=== PATIENT | female | born 2000 | race Two or more races ===

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

== ENCOUNTER 2022-08-08 10:25 | Emergency (ER) | payer BC, OTHER, SELFPAY ==
[2022-08-08 12:21] VITALS: BP 120/78; PULSE 80; RESP 18; TEMP 36.8; O2SAT 100
--- NOTE | 2022-08-08 13:01 | ED.URI ---
HPI - URI/Sore Throat General Chief Complaint: Upper Respiratory Infection Stated Complaint: congestion,sorethroat Source: patient and family Mode of arrival: ambulatory History of Present Illness HPI Narrative: This is a 21-year-old female that has been experiencing chills low-grade fevers she notes that her temperature was 99?, body aches, cough congestion and runny nose. Patient took [id number] cold and cough medication for symptoms. The patient denies SOB, CP, palpitation, extremity numbness, lightheadedness, dizziness, constipation, and diarrhea. Related Data Home Medications Medication Instructions Recorded Confirmed spironolactone 100 mg tablet 100 mg PO DAILY 06/29/21 08/08/22 albuterol 90 mcg/actuation aerosol 90 mcg inhalation PRN PRN 09/18/21 08/08/22 inhaler Shortness Of Breath Or Wheezing budesonide-formoterol HFA 80 1 puff inhalation TID 09/18/21 08/08/22 mcg-4.5 mcg/actuation aerosol inhaler multivitamin 1 tablet PO DAILY 09/18/21 08/08/22 Allergies Allergy/AdvReac Type Severity Reaction Status Date / Time No Known Allergies Allergy Mild Verified 08/08/22 12:15 Review of Systems Review of Systems: A 14 organ system Review of Systems was performed and pertinent positives included in the HPI, otherwise remaining ROS is negative. [facility] Past Medical History Medical History Asthma Activity induced BMI 26.0-26.9,adult BMI 27.0-27.9,adult Surgical History Surgical History No significant past surgical history Family History Family History Mother Patient's mother is in good health Family history of kidney disease Autoimmune disorder Father Patient's father is in good health Sibling Patient's brother is in good health Social History Social History Smoking status: Never smoker Second hand tobacco smoke exposure: No Alcohol intake: current Drinks per week: 1 Alcohol use details: Social drinker Substance use: never Substance use type: marijuana Additional occupation/education comments: [employer] Gender identity (if verbalized by the patient): Female Sexual Orientation (if Verbalized by the Patient): Straight or Heterosexual Spiritual care concerns: No Agree to blood products: Yes Exam Narrative: GENERAL: Ill appearance, in no apparent distress. HEAD: normocephalic, atraumatic. EYES: PERRL. Sclera clear/white. Vision is grossly intact. EARS: External ears normal, auditory canals clear and without drainage, TMs normal without perforation. Hearing grossly intact. NOSE: External nose normal with no obvious nasal discharge, nares without redness, no rhinorrhea. THROAT: Mucous membranes moist, posterior pharynx clear. NECK: Neck supple, non-tender without lymphadenopathy, masses or thyromegaly. CARDIOVASCULAR: Regular rate and rhythm without murmurs, gallops, or rubs. RESPIRATORY: Clear to auscultation. Breath sounds equal bilaterally. No wheezes, rales, or rhonchi. GASTROINTESTINAL: Abdomen soft, non-tender, nondistended. Bowel sounds are active. No hepato-splenomegaly, or palpable masses. No guarding. SKIN: warm, intact with no suspicious lesions or rash, good texture and turgor. NEURO: awake, alert, and oriented to person, place and time. There were no obvious focal neurologic abnormalities. EXTREMITIES: Normal range of motion. No edema. No calf tenderness. Course Course Emergency Course: Patient tested positive for influenza A she will be treated with Tamiflu, guaifenesin and Tessalon Perles Level of Care: Express Care Visit Vital Signs Vital signs: Vital Signs Temperature 98.3 F 08/08/22 12:21 Pulse Rate 80 08/08/22 12:21 Respiratory Rate 18 08/08/22 12:21 Blood Pressure 120/78 08/08/22 1
== END 2022-08-08 13:10 | disposition home or self-care (01) ==
PROVIDERS: Emergency Provider Nurse Practitioner; PCP Family Medicine
DX: J10.1 Influenza due to other identified influenza virus with other respiratory manifestations (principal); J45.990 Exercise induced bronchospasm
CPT/HCPCS: 87804; 99213; G0463

== ENCOUNTER 2022-11-15 10:41 | Emergency (ER) | payer BC, OTHER, SELFPAY ==
[2022-11-15 11:20] VITALS: BP 109/62; PULSE 73; RESP 16; TEMP 36.7; O2SAT 100
--- NOTE | 2022-11-15 11:42 | ED.GENADULT ---
HPI - General Adult General Chief complaint: Upper Respiratory Infection Stated complaint: sorethroat,congestion Time Seen by Provider: 11/15/22 11:42 Source: patient Mode of arrival: ambulatory Limitations: no limitations History of Present Illness HPI narrative: 22-year-old female patient presents to the [facility] with complaints of sore throat that started yesterday. Patient denies any fevers, body aches or chills. Denies any ear pain, sneezing or coughing. Denies chest pain, shortness of breath. Patient states she took NyQuil last night for her symptoms. Related Data Home Medications Medication Instructions Recorded Confirmed spironolactone 100 mg tablet 100 mg PO DAILY 06/29/21 11/15/22 albuterol 90 mcg/actuation aerosol 90 mcg inhalation PRN PRN 09/18/21 11/15/22 inhaler Shortness Of Breath Or Wheezing Allergies Allergy/AdvReac Type Severity Reaction Status Date / Time No Known Allergies Allergy Mild Verified 11/15/22 11:24 Review of Systems Review of Systems: CONSTITUTIONAL: Denies fever, chills, or sweats. EYES: Denies visual changes, redness, or discharge. ENT: Denies rhinorrhea, congestion, Positive sore throat, or otalgia. CARDIOVASCULAR: Denies chest pain, palpitations, or edema. RESPIRATORY: Denies cough or dyspnea. GASTROINTESTINAL: Denies abdominal pain, nausea, vomiting, or diarrhea. GENITOURINARY: Denies dysuria or hematuria. SKIN: Denies rash or itching. MUSCULOSKELETAL: Denies back pain, joint pain, or myalgia. NEUROLOGIC: Denies headache, numbness, or weakness. PSYCHIATRIC: Denies anxiety or depression. [facility] Past Medical History Medical History Asthma Activity induced BMI 26.0-26.9,adult BMI 27.0-27.9,adult Surgical History Surgical History No significant past surgical history Family History Family History Mother Patient's mother is in good health Family history of kidney disease Autoimmune disorder Father Patient's father is in good health Sibling Patient's brother is in good health Social History Social History Smoking status: Never smoker Second hand tobacco smoke exposure: No Alcohol intake: current Drinks per week: 1 Alcohol use details: Social drinker Substance use: never Substance use type: marijuana Living arrangements: with family Occupation/Education: student Additional occupation/education comments: [employer] Gender identity (if verbalized by the patient): Female Sexual Orientation (if Verbalized by the Patient): Straight or Heterosexual Spiritual care concerns: No Agree to blood products: Yes Comments At the time of my signature I agree with nursing past medical history, surgical, social, and family history. There is no relevant family history pertinent to the presenting complaint. Exam Narrative: GENERAL: Well-appearing, well-nourished, and in no acute distress. HEAD: Normocephalic, atraumatic. EYES: PERRLA and EOMI. ENT: Nares clear, no rhinorrhea or epistaxis. Mucous membranes moist. bilateral TMs are clear no erythema foreign bodies in the canal. Posterior pharynx with no erythema, tonsillar enlargement, exudates or lesions present. NECK: Supple. No lymphadenopathy CHEST: Clear to auscultation. No respiratory distress. HEART: Regular rate and rhythm. No murmur heard. Normal peripheral pulses. ABDOMEN: Soft, nontender, nondistended, normal active bowel sounds. EXTREMITIES: Normal range of motion. No edema. SKIN: Warm, dry, no rash. NEURO: No focal deficits. Alert and oriented x3. Course Course Level of Care: Express Care Visit Vital Signs Vital signs: Vital Signs Temperature 36.7 C 11/15/22 11:20 Pulse Rate 73 11/15/22 11:20 Respiratory Rate 16 11/15/22 11:20 Blo
== END 2022-11-15 11:57 | disposition home or self-care (01) ==
PROVIDERS: Emergency Provider Nurse Practitioner Family; PCP Family Medicine
DX: J02.9 Acute pharyngitis, unspecified (principal); J45.909 Unspecified asthma, uncomplicated
CPT/HCPCS: 87081; 87880; 99213; G0463

== ENCOUNTER 2023-04-15 14:51 | Outpatient (CLI) | payer OTHER, SELFPAY ==
--- NOTE | ~2023-04-15 | XR_ITS ---
EXAM: XR hand RT min 3V DATE: 04/15/2023 15:04 HISTORY: S69.90XA - Unspecified injury of unspecified wrist, hand ... . COMPARISON: None available. FINDINGS: Normal mineralization. Small osseous fragment at the proximal and anterior aspect of the f ifth middle phalange that appears to be fused with the phalange. No acute fracture or dislocation. No lytic or blastic lesion. Joint spaces are maintained. No erosion or periosteal change. Soft tissues within normal limits. IMPRESSION: Likely healed volar plate avulsion at the proximal aspect of the right fifth middle phala nge. Reviewed, dictated and finalized at location K. IMPRESSION: Likely healed volar plate avulsion at the proximal aspect of the ri ght fifth middle phalange.
== END 2023-04-15 14:52 ==
PROVIDERS: PCP Family Medicine; Visit Provider Physician Assistant Medical
DX: S69.90XA Unspecified injury of unspecified wrist, hand and finger(s), initial encounter (principal); X58.XXXA Exposure to other specified factors, initial encounter
CPT/HCPCS: 73130

== ENCOUNTER 2023-04-15 15:29 | Emergency (ER) | payer SELFPAY ==
--- NOTE | 2023-04-15 15:31 | P.SPORTS_ITS ---
[facility] Past Medical History Medical History Asthma Activity induced BMI 26.0-26.9,adult BMI 27.0-27.9,adult Surgical History Surgical History No significant past surgical history Family History Family History Mother Patient's mother is in good health Family history of kidney disease Autoimmune disorder Father Patient's father is in good health Sibling Patient's brother is in good health Social History Social History Smoking status: Never smoker Second hand tobacco smoke exposure: No Alcohol intake: current Drinks per week: 1 Alcohol use details: Social drinker Substance use: never Substance use type: marijuana Living arrangements: with family Occupation/Education: student Additional occupation/education comments: [employer] Gender identity (if verbalized by the patient): Female Sexual Orientation (if Verbalized by the Patient): Straight or Heterosexual Spiritual care concerns: No Agree to blood products: Yes Allergies: Allergies Allergy/AdvReac Type Severity Reaction Status Date / Time No Known Allergies Allergy Mild Verified 04/15/23 13:20 Home Medications: Home Medications Medication Instructions Recorded Confirmed spironolactone 100 mg tablet 100 mg PO DAILY 06/29/21 04/15/23 albuterol 90 mcg/actuation aerosol 90 mcg inhalation PRN PRN 09/18/21 04/15/23 inhaler Shortness Of Breath Or Wheezing Services Provided Sports Physical Completed: Urvashi Cisneros was seen today, 04/15/23, for a sports physical. The paper physical form was completed and scanned into the chart. The original paper physical form was given to the patient for submission to their school. Discharge Plan Discharge Clinical Impression: Encounter for examination for participation in sport Patient Disposition: Home, Self-Care Condition: Stable Instructions: Antibiotic Form, Normal Exam (ED) Additional Instructions: May participate in sports for the [id number] school season. Prescriptions: No Action spironolactone 100 mg tablet 100 mg PO DAILY albuterol 90 mcg/actuation aerosol 90 mcg inhalation PRN PRN (Reason: Shortness Of Breath Or Wheezing) Follow-up/Referrals: Jeremie Strong MD [Primary Care Provider] - Time of Disposition: 15:34
[2023-04-15 15:39] VITALS: BP 101/62; PULSE 76; RESP 16; TEMP 36.6; O2SAT 100
== END 2023-04-15 15:49 | disposition home or self-care (01) ==
PROVIDERS: Emergency Provider Nurse Practitioner Family; PCP Family Medicine
DX: Z02.5 Encounter for examination for participation in sport (principal)
CPT/HCPCS: 99199

== ENCOUNTER 2025-01-31 08:55 | Emergency (ER) | payer OTHER, SELFPAY ==
[2025-01-31 09:05] VITALS: BP 104/74; PULSE 60; RESP 18; TEMP 37.3; O2SAT 98
--- NOTE | 2025-01-31 09:44 | ED.FEMALEGU ---
HPI - Female Genitourinary General Chief complaint: Urogenital-Female Stated complaint: Uti Symptoms Time Seen by Provider: 01/31/25 09:40 Source: patient and RN notes reviewed Mode of arrival: ambulatory Limitations: no limitations History of Present Illness HPI Narrative: 24-year-old female presents with concern for 1 day history of frequency and dysuria. Reports frequent urinary tract infections. She denies fever, body aches, chills, sweats, nausea, vomiting MD elicited complaint: UTI Related Data Home Medications Medication Instructions Recorded Confirmed Last Taken Type spironolactone 100 mg tablet 100 mg PO DAILY 06/29/21 08/05/23 Unknown History albuterol 90 mcg/actuation aerosol 90 mcg inhalation PRN PRN 09/18/21 08/05/23 Unknown History inhaler Shortness Of Breath Or Wheezing tretinoin 0.05 % topical cream applic topical 08/05/23 08/05/23 Unknown History Allergies Allergy/AdvReac Type Severity Reaction Status Date / Time No Known Allergies Allergy Mild Verified 09/10/23 15:14 Review of Systems Review of Systems: CONSTITUTIONAL: Denies malaise, chills, sweats, or fever. CARDIOVASCULAR: Denies chest pain, palpitations, or edema. RESPIRATORY: Denies cough or dyspnea. GASTROINTESTINAL: Denies abdominal pain, nausea, vomiting, diarrhea GENITOURINARY: Reports dysuria, frequency, urgency. Denies flank pain or hematuria. SKIN: Denies rash or itching. MUSCULOSKELETAL: Denies back pain or myalgia. All systems reviewed & are unremarkable except as noted in HPI and below PMFSH Past Medical History Medical History (Updated 01/31/25 @ 09:51 by Stella Marquez NP) Dry skin BMI 25.0-25.9,adult BMI 26.0-26.9,adult BMI 27.0-27.9,adult Asthma Activity induced Surgical History Surgical History No significant past surgical history Family History Family History Mother Patient's mother is in good health Family history of kidney disease Autoimmune disorder Father Patient's father is in good health Sibling Patient's brother is in good health Social History Social History (Reviewed 09/10/23 @ 16:01 by EDGAR Bell Smoking status: Never smoker Second hand tobacco smoke exposure: No Alcohol intake: current Drinks per week: 1 Alcohol use details: Social drinker Substance use: never Substance use type: marijuana Lack of Transportation: No Lack of Food: Never True Current Housing: I Have Housing Concerned About Future Housing: No Difficulty Paying Gas/Electric Bills: No Currently Unemployed: No Education: High School Diploma/GED Difficulty w/ Childcare or Family Care: No Living arrangements: with family Occupation/Education: student Additional occupation/education comments: [employer] Gender identity (if verbalized by the patient): Female Sexual Orientation (if Verbalized by the Patient): Straight or Heterosexual Spiritual care concerns: No Agree to blood products: Yes Comments At time of signature, agree with nursing past medical, surgical, social and family history. There is no relevant family history pertinent to the presenting complaint Exam Narrative: GENERAL: Well-appearing, well-nourished, and in no acute distress. HEAD: Normocephalic. EYES: PERRLA, conjunctivae clear. NECK: Supple. No lymphadenopathy CHEST: Clear to auscultation. No respiratory distress. HEART: Regular rate and rhythm. ABDOMEN: Soft, nontender upon palpation, nondistended, normal active bowel sounds, no palpable or pulsatile masses, no guarding. No CVA tenderness SKIN: Warm, dry, no rash. NEURO: Alert and oriented x3. PSYCH: Normal mood and affect Course Course Emergency Course: Patient is aware of diagnosis, understands and agrees to treatment plan. Anticipatory guidance given. Patient agrees to follow-up as directed and is aware of reasons to seek care at the emergency department. Portions of this record may have been created with voice recognition software Level of Care: Express Care Visit Vital Signs Vital signs: Vital Signs Temperature 99.1 F 01/31/25 09:05 Pulse Rate 60 01/31/25 09:05 Respiratory Rate 18 01/31/25 09:05 Blood Pressure 104/74 01/31/25 09:05 Pulse Oximetry 98 01/31/25 09:05 Temperature 99.1 F 01/31/25 09:05 Pulse Rate 60 01/31/25 09:05 Respiratory Rate 18 01/31/25 09:05 Blood Pressure 104/74 01/31/25 09:05 Pulse Oximetry 98 01/31/25 09:05 Reviewed. MDM - Female Genitourinary MDM Narrative Medical decision making narrative: Exam findings and UA show no acute concerns or changes; patient is non-toxic appearing and is in no distress. Patient is appropriate for outpatient treatment and follow-up. Differential Diagnosis Differential diagnosis: Likely urinary tract infection and cystitis Critical Care Time Critical Care Time Critical Care Time: No Discharge Plan Discharge Clinical Impression: Urinary tract infection Patient Disposition: Home Condition: Stable Instructions: Antibiotic Form, Acute Urinary Retention in Women (ED) Additional Instructions: We will send a urine culture to the lab; if the culture identifies an organism that the prescribed antibiotic will not treat, you will receive a phone call from an urgent care staff member and an appropriate antibiotic will be prescribed. -Your symptoms should begin to improve within a day of starting antibiotics. But you should finish all the antibiotic pills you get. Otherwise your infection might come back. -Also recommend: increase water intake. Tylenol/ibuprofen as needed for pain or fever -Follow-up with your primary care provider for urine recheck or seek ER visit if condition worsens with high fever, nausea, vomiting and severe back pain. Patient Language: Russian Prescriptions: New nitrofurantoin monohyd/m-cryst [Macrobid] 100 mg capsule 100 mg PO Q12H 5 Days Qty: 10 0RF Rx Instructions: must administer with a meal/food No Action spironolactone 100 mg tablet 100 mg PO DAILY albuterol 90 mcg/actuation aerosol 90 mcg inhalation PRN PRN (Reason: Shortness Of Breath Or Wheezing) tretinoin 0.05 % cream topical Follow-up/Referrals: PHYSICIAN,KNITTED GARMENT FINISHER [Primary Care Provider] - Stand Alone Forms: Work/School Release IP Time of Disposition: 09:51
[2025-01-31 10:09] LABS: EDUAAPPEAR Clear; EDUABILI Negative (Negative); EDUABLOOD Trace (Negative); EDUACOLOR1 Yellow; EDUAGLUCOSE Negative (Negative); EDUAKETONE Negative (Negative); EDUALEUKO Trace (Negative); EDUANITRATE Negative (Negative); EDUAPH 7.5; EDUAPROTEIN Negative (Negative); EDUASPGRAVITY 1.015; EDUAUROBILI 0.2
== END 2025-01-31 09:53 | disposition home or self-care (01) ==
PROVIDERS: Emergency Provider Nurse Practitioner
DX: N39.0 Urinary tract infection, site not specified (principal); J45.990 Exercise induced bronchospasm
CPT/HCPCS: 81003; 87086; 99213; G0463